=== PATIENT | female | born 1975 | race Caucasian/White ===

== ENCOUNTER 2017-06-13 05:20 | Emergency (ER) | payer MEDICAID, OTHER ==
[~2017-06-13] VITALS: Ht 142.2 cm; Wt 87.5 kg
[~2017-06-13 05:20] MED LIST: Amoxicillin PO; CARI350T PO; CEFD300C37 PO; HYDR-3240 PO; OXYC-302 PO; POTA20TA89 PO; Potassium PO; TRAZ50TA18 PO
[2017-06-13 05:49] LABS: HEMATOCRIT 37.1 % (34.6-47.8); WHITE BLOOD COUNT 15.8 x10^3/uL (3.4-10)
[2017-06-13 06:03] LABS: BLOOD UREA NITROGEN 8 mg/dL (7-18)
[2017-06-13 06:06] LABS: IS PT STATUS REG ER OR PRE ER? YES
[2017-06-13] MEDS ORDERED: KETOROLAC 30 MG/1 ML IM ONE (07:00)
[2017-06-13] MEDS ORDERED: KETOROLAC 30 MG/1 ML ONE (07:21)
[2017-06-13 07:29] VITALS: BP 159/71
[2017-06-13 07:50] LABS: IS PT STATUS REG ER OR PRE ER? YES
== END 2017-06-13 12:27 | disposition home or self-care (01) ==
LOC: ED 05:26
DX: R07.89 Other chest pain (principal)
CPT/HCPCS: 36415; 80048; 82040; 84484; 85025; 93005; 96372; 99285; J1885

== ENCOUNTER 2017-06-14 07:28 | Emergency (ER) | payer MEDICAID ==
[~2017-06-14] VITALS: Ht 144.8 cm; Wt 82.0 kg
[2017-06-14 08:29] LABS: HEMATOCRIT 36.7 % (34.6-47.8); WHITE BLOOD COUNT 13.5 x10^3/uL (3.4-10)
[2017-06-14 08:42] LABS: ASPARTATE AMINO TRANSFERASE 60 U/L (15-37); BLOOD UREA NITROGEN 9 mg/dL (7-18)
[2017-06-14 09:18] LABS: PATH.CAST-FLAG NOT PRESENT; SPERM-FLAG NOT PRESENT; SRC-FLAG NOT PRESENT; XTAL-FLAG NOT PRESENT; YLC-FLAG NOT PRESENT
[2017-06-14 13:17] VITALS: BP 124/92
== END 2017-06-14 15:17 | disposition home or self-care (01) ==
LOC: ED 07:40
DX: R10.30 Lower abdominal pain, unspecified (principal); F17.210 Nicotine dependence, cigarettes, uncomplicated
CPT/HCPCS: 36415; 80053; 81001; 85025; 99284

== ENCOUNTER 2017-07-05 18:22 | Inpatient (IN) | payer MEDICAID ==
[~2017-07-05] VITALS: Ht 144.8 cm; Wt 79.6 kg
[2017-07-05] MEDS ORDERED: ONDANSETRON 2MG/ML, 2ML IVPush ONE (19:00)
[2017-07-05] MEDS ORDERED: SODIUM CHLORIDE 0.9% 1,000ML IVBOLUS ONE (19:00)
[2017-07-05] MEDS ORDERED: SODIUM CHLORIDE FLUSH 10ML SYR IVF ONE (19:00)
[2017-07-05 19:26] LABS: HEMATOCRIT 42.5 % (34.6-47.8); HEMOGLOBIN 13.5 g/dL (11.7-16.4); WHITE BLOOD COUNT 15.4 x10^3/uL (3.4-10)
[2017-07-05 19:29] LABS: ASPARTATE AMINO TRANSFERASE 59 U/L (15-37); BLOOD UREA NITROGEN 9 mg/dL (7-18)
[2017-07-05 19:35] LABS: IS PT STATUS REG ER OR PRE ER? YES
[2017-07-05] MEDS ORDERED: KETOROLAC 30 MG/1 ML IM ONE (20:00)
[2017-07-05] MEDS ORDERED: KETOROLAC 30 MG/1 ML ONE (20:02)
[2017-07-05] MEDS ORDERED: OMNIPAQUE 350 MG/ML, 100ML BOTTLE ONE (21:18)
[2017-07-05 22:32] LABS: IS PT STATUS REG ER OR PRE ER? YES
[2017-07-06] MEDS ORDERED: NITROGLYCERIN 0.4 MG BOTTLE (25 TABS) SL PRN
[2017-07-06] MEDS ORDERED: ONDANSETRON 2MG/ML, 2ML IVPush PRN
[2017-07-06] MEDS ORDERED: POLYETHYLENE GLYCOL 17 GM PACKET PO PRN
[2017-07-06] MEDS ORDERED: BISACODYL 10 MG SUPP PR PRN
[2017-07-06 01:25] LABS: FERRITIN 18.7 ng/mL (8-252)
[2017-07-06 02:20] VITALS: BP 110/70
[2017-07-06] MEDS: HEPARIN 5,000 UNITS/ML, 1ML SQ SCH ×3 (04:44→22:21)
[2017-07-06] MEDS: ASPIRIN 81 MG TABLET EC PO SCH (04:44)
[2017-07-06] MEDS: LEVOFLOXACIN/PMX 500MG/100ML 100 ML IV SCH (04:45)
[2017-07-06] MEDS: SODIUM CHLORIDE 0.9% 1,000 ML IV SCH ×2 (04:45→22:21)
[2017-07-06 06:29] LABS: BLOOD UREA NITROGEN 9 mg/dL (7-18)
[2017-07-06 06:34] LABS: ASPARTATE AMINO TRANSFERASE 53 U/L (15-37)
[2017-07-06 06:36] LABS: IS PT STATUS REG ER OR PRE ER? NO
[2017-07-06 06:48] LABS: HEMATOCRIT 35.3 % (34.6-47.8); HEMOGLOBIN 11.3 g/dL (11.7-16.4); WHITE BLOOD COUNT 15.3 x10^3/uL (3.4-10)
[2017-07-06 08:30] VITALS: BP 124/75
[2017-07-06] MEDS: SENNA/DOCUSATE TABLET PO SCH (09:00)
[2017-07-06] MEDS: KETOROLAC 30 MG/1 ML IVPush PRN ×2 (09:30→22:21)
[2017-07-06] MEDS: CARISOPRODOL 350 MG TABLET PO SCH (12:17)
[2017-07-06] MEDS: POTASSIUM CHLORIDE 20 MEQ TAB.ER.PRT PO SCH ×3 (12:18→22:22)
[2017-07-06] MEDS: OXYcodone/APAP 5/325MG TABLET PO PRN ×2 (12:18→17:51)
[2017-07-06 14:30] VITALS: BP 118/68
[2017-07-06] MEDS: ACETAMINOPHEN 325 MG TABLET PO PRN (15:08)
[2017-07-06] MEDS: IRON SUCROSE COMPLEX 100MG/5ML IV SCH (15:18)
[2017-07-06 20:00] VITALS: BP 128/70
[2017-07-06] MEDS: TRAZODONE 50MG TABLET PO SCH ×2 (22:22)
[2017-07-07 00:50] VITALS: BP 127/87
[2017-07-07] MEDS: OXYcodone/APAP 5/325MG TABLET PO PRN ×2 (03:26→13:07)
[2017-07-07] MEDS: LEVOFLOXACIN/PMX 500MG/100ML 100 ML IV SCH (05:33)
[2017-07-07] MEDS: HEPARIN 5,000 UNITS/ML, 1ML SQ SCH ×3 (05:33→20:40)
[2017-07-07] MEDS: ASPIRIN 81 MG TABLET EC PO SCH (05:33)
[2017-07-07 06:09] LABS: HEMATOCRIT 31.3 % (34.6-47.8); HEMOGLOBIN 10.2 g/dL (11.7-16.4); WHITE BLOOD COUNT 9.7 x10^3/uL (3.4-10)
[2017-07-07 06:26] LABS: BLOOD UREA NITROGEN 8 mg/dL (7-18)
[2017-07-07 09:23] VITALS: BP 132/71
[2017-07-07] MEDS: POTASSIUM CHLORIDE 20 MEQ TAB.ER.PRT PO SCH ×2 (10:40→20:33)
[2017-07-07] MEDS: CARISOPRODOL 350 MG TABLET PO SCH (10:40)
[2017-07-07] MEDS: IRON SUCROSE COMPLEX 100MG/5ML IV SCH (10:40)
[2017-07-07] MEDS: SENNA/DOCUSATE TABLET PO SCH (10:40)
[2017-07-07] MEDS: KETOROLAC 30 MG/1 ML IVPush PRN ×2 (10:54→20:34)
[2017-07-07] MEDS: SODIUM CHLORIDE 0.9% 1,000 ML IV SCH (13:07)
[2017-07-07 15:58] VITALS: BP 136/76
[2017-07-07 19:18] VITALS: BP 125/66
[2017-07-07] MEDS: TRAZODONE 50MG TABLET PO SCH (20:33)
[2017-07-08] MEDS: SODIUM CHLORIDE 0.9% 1,000 ML IV SCH (02:34)
[2017-07-08 03:15] VITALS: BP 130/73
[2017-07-08] MEDS: KETOROLAC 30 MG/1 ML IVPush PRN ×3 (03:45→18:34)
[2017-07-08] MEDS: HEPARIN 5,000 UNITS/ML, 1ML SQ SCH ×3 (05:16→20:55)
[2017-07-08] MEDS: ASPIRIN 81 MG TABLET EC PO SCH (05:16)
[2017-07-08] MEDS: LEVOFLOXACIN/PMX 500MG/100ML 100 ML IV SCH (05:16)
[2017-07-08 06:40] VITALS: BP 144/80
[2017-07-08] MEDS: POTASSIUM CHLORIDE 20 MEQ TAB.ER.PRT PO SCH ×2 (10:22→20:55)
[2017-07-08] MEDS: SENNA/DOCUSATE TABLET PO SCH (10:22)
[2017-07-08] MEDS: CARISOPRODOL 350 MG TABLET PO SCH (10:22)
[2017-07-08] MEDS: OXYcodone/APAP 5/325MG TABLET PO PRN ×2 (10:22→16:41)
[2017-07-08] MEDS: IRON SUCROSE COMPLEX 100MG/5ML IV SCH (10:22)
[2017-07-08 12:50] VITALS: BP 128/87
[2017-07-08 19:50] VITALS: BP 135/88
[2017-07-08] MEDS: TRAZODONE 50MG TABLET PO SCH (20:56)
[2017-07-09 03:30] VITALS: BP 133/78
[2017-07-09] MEDS: ASPIRIN 81 MG TABLET EC PO SCH (05:15)
[2017-07-09] MEDS: HEPARIN 5,000 UNITS/ML, 1ML SQ SCH ×3 (05:15→20:32)
[2017-07-09] MEDS: LEVOFLOXACIN 500 MG TABLET PO SCH (05:16)
[2017-07-09] MEDS: OXYcodone/APAP 5/325MG TABLET PO PRN ×3 (05:23→20:32)
[2017-07-09 06:45] VITALS: BP 139/76
[2017-07-09] MEDS: CARISOPRODOL 350 MG TABLET PO SCH (10:26)
[2017-07-09] MEDS: IRON SUCROSE COMPLEX 100MG/5ML IV SCH (10:26)
[2017-07-09] MEDS: SENNA/DOCUSATE TABLET PO SCH (10:26)
[2017-07-09] MEDS: POTASSIUM CHLORIDE 20 MEQ TAB.ER.PRT PO SCH ×2 (10:26→20:32)
[2017-07-09] MEDS: KETOROLAC 30 MG/1 ML IVPush PRN (10:27)
[2017-07-09 14:52] VITALS: BP 127/82
[2017-07-09 19:53] VITALS: BP 107/74
[2017-07-09] MEDS: TRAZODONE 50MG TABLET PO SCH (20:32)
[2017-07-10 01:54] VITALS: BP 115/78
[2017-07-10] MEDS: ASPIRIN 81 MG TABLET EC PO SCH (05:26)
[2017-07-10] MEDS: LEVOFLOXACIN 500 MG TABLET PO SCH (05:26)
[2017-07-10] MEDS: HEPARIN 5,000 UNITS/ML, 1ML SQ SCH ×3 (05:26→22:08)
[2017-07-10 08:06] VITALS: BP 109/71
[2017-07-10] MEDS: SENNA/DOCUSATE TABLET PO SCH ×2 (09:00→09:50)
[2017-07-10] MEDS: POTASSIUM CHLORIDE 20 MEQ TAB.ER.PRT PO SCH ×2 (09:49→22:08)
[2017-07-10] MEDS: FERROUS SULFATE 325 MG TABLET PO SCH ×2 (09:49→15:48)
[2017-07-10] MEDS: CARISOPRODOL 350 MG TABLET PO SCH (09:49)
[2017-07-10] MEDS: OXYcodone/APAP 5/325MG TABLET PO PRN ×3 (09:49→22:08)
[2017-07-10 14:30] VITALS: BP 145/88
[2017-07-10 19:33] VITALS: BP 115/80
[2017-07-10] MEDS: TRAZODONE 50MG TABLET PO SCH (22:08)
[2017-07-11 02:00] VITALS: BP 112/81
[2017-07-11] MEDS: OXYcodone/APAP 5/325MG TABLET PO PRN ×3 (04:27→20:01)
[2017-07-11] MEDS: ASPIRIN 81 MG TABLET EC PO SCH (06:01)
[2017-07-11] MEDS: LEVOFLOXACIN 500 MG TABLET PO SCH (06:01)
[2017-07-11] MEDS: HEPARIN 5,000 UNITS/ML, 1ML SQ SCH ×3 (06:05→20:02)
[2017-07-11 08:00] VITALS: BP 107/70
[2017-07-11] MEDS: CARISOPRODOL 350 MG TABLET PO SCH (08:54)
[2017-07-11] MEDS: SENNA/DOCUSATE TABLET PO SCH (08:54)
[2017-07-11] MEDS: POTASSIUM CHLORIDE 20 MEQ TAB.ER.PRT PO SCH ×2 (08:55→20:01)
[2017-07-11] MEDS: FERROUS SULFATE 325 MG TABLET PO SCH ×2 (08:55→17:27)
[2017-07-11 14:00] VITALS: BP 100/70
[2017-07-11] MEDS: ACETAMINOPHEN 325 MG TABLET PO PRN (15:34)
[2017-07-11 19:32] VITALS: BP 125/97
[2017-07-11] MEDS: TRAZODONE 50MG TABLET PO SCH (20:01)
[2017-07-12 01:16] VITALS: BP 104/73
[2017-07-12] MEDS: ACETAMINOPHEN 325 MG TABLET PO PRN (01:17)
[2017-07-12] MEDS: ASPIRIN 81 MG TABLET EC PO SCH (05:36)
[2017-07-12] MEDS: LEVOFLOXACIN 500 MG TABLET PO SCH (05:36)
[2017-07-12] MEDS: OXYcodone/APAP 5/325MG TABLET PO PRN ×2 (05:36→15:32)
[2017-07-12] MEDS: HEPARIN 5,000 UNITS/ML, 1ML SQ SCH ×2 (05:37→12:58)
[2017-07-12 07:59] VITALS: BP 150/85
[2017-07-12] MEDS: POTASSIUM CHLORIDE 20 MEQ TAB.ER.PRT PO SCH (09:02)
[2017-07-12] MEDS: SENNA/DOCUSATE TABLET PO SCH (09:02)
[2017-07-12] MEDS: FERROUS SULFATE 325 MG TABLET PO SCH (09:02)
[2017-07-12] MEDS: CARISOPRODOL 350 MG TABLET PO SCH (09:02)
[2017-07-12] MEDS ORDERED: SUMATRIPTAN 6MG/0.5ML SQ PRN (10:00)
[2017-07-12 12:00] VITALS: BP 148/89
[2017-07-12] MEDS ORDERED: FERR-36 PO (15:44)
== END 2017-07-12 16:50 | disposition home or self-care (01) | DRG 313 ==
LOC: ED 19:39 → EDIP 23:55 → 4EST 07-06 02:44 → 4WST 07-10 20:08 → DCLOUNGE 07-12 16:43
PROVIDERS: ADMIT Hospitalist; ATTEND Family Medicine
PROC: 0T9B70Z Drainage of Bladder with Drainage Device, Via Natural or Artificial Opening (ICD-10-PCS; principal; 2017-07-05)
DX: R07.89 Other chest pain (principal); G82.50 Quadriplegia, unspecified; N39.0 Urinary tract infection, site not specified; E11.9 Type 2 diabetes mellitus without complications; E78.1 Pure hyperglyceridemia; B96.20 Unspecified Escherichia coli [E. coli] as the cause of diseases classified elsewhere; B95.2 Enterococcus as the cause of diseases classified elsewhere; F12.90 Cannabis use, unspecified, uncomplicated; R00.0 Tachycardia, unspecified; Z16.11 Resistance to penicillins; F17.210 Nicotine dependence, cigarettes, uncomplicated; Z99.3 Dependence on wheelchair; Q05.9 Spina bifida, unspecified; Z59.0 Homelessness; Z79.84 Long term (current) use of oral hypoglycemic drugs; Z88.2 Allergy status to sulfonamides
CPT/HCPCS: 36415; 71010; 71275; 80048; 80053; 81003; 82728; 82962; 83540; 83550; 83880; 84484; 85025; 87040; 93005; 96372; J1644; J1756; J1885; J1956; Q9967; J3030; J7030

== ENCOUNTER 2017-07-23 18:42 | Emergency (ER) | payer MEDICAID ==
[~2017-07-23] VITALS: Ht 144.8 cm; Wt 79.5 kg
[~2017-07-23 18:42] MED LIST changes: +FERR-36 PO
[2017-07-23 20:31] LABS: MEAN CORPUSCULAR HEMOGLOBIN 25.1 pg (27.0-34.8); MEAN CORPUSCULAR HGB CONC 32.5 g/dL (32.4-35.8); MEAN CORPUSCULAR VOLUME 77.3 fL (80-100); MEAN PLATELET VOLUME 8.3 fL (7.4-10.4); PLATELET COUNT 567 x10^3/uL (130-400); RED BLOOD COUNT 5.38 x10^6/uL (3.82-5.3); RED CELL DISTRIBUTION WIDTH 23.4 % (9.6-15.2)
[2017-07-23 20:36] LABS: ANION GAP 8 mmol/L (5-15); CALCIUM 9.5 mg/dL (8.5-10.1); CHLORIDE 105 mmol/L (98-107); CREATININE 0.49 mg/dL (0.55-1.02)
[2017-07-23 20:46] LABS: BASOPHILS # (AUTO) 0.04 x10^3/uL (0-0.1); BASOPHILS % (AUTO) 0 % (0-1); EOSINOPHILS # (AUTO) 0.62 x10^3/uL (0-0.4); EOSINOPHILS % (AUTO) 4 % (1-7); LYMPHOCYTES # (AUTO) 3.11 x10^3/uL (1-3.4); LYMPHOCYTES % (AUTO) 22 % (22-44); MD MORPH REVIEW ONLY; MONOCYTES # (AUTO) 0.74 x10^3/uL (0.2-0.8); MONOCYTES % (AUTO) 5 % (2-9); NEUTROPHILS # (AUTO) 9.87 x10^3/uL (1.8-6.8); NEUTROPHILS % (AUTO) 69 % (42-75)
[2017-07-23 20:47] LABS: ANISOCYTOSIS 3+; MICROCYTOSIS 1+
[2017-07-23 20:48] LABS: <PLATELET ESTIMATE> INCREASED; <PLT MORPHOLOGY> NORMAL PLT MORPH; POLYCHROMASIA 1+; SPHEROCYTES 1+
[2017-07-23 21:02] LABS: MICROSCOPIC INDICATED
[2017-07-23 21:10] LABS: CULTURE INDICATED? NO
[2017-07-23 21:34] LABS: RAPID INFLUENZA A Negative (Negative); RAPID INFLUENZA B Negative (Negative)
[2017-07-23] MEDS ORDERED: ONDANSETRON ODT 4 MG PO ONE (22:00)
[2017-07-23] MEDS ORDERED: ONDANSETRON ODT 4 MG ONE (22:02)
[2017-07-23 22:23] VITALS: BP 142/88
== END 2017-07-23 23:02 | disposition home or self-care (01) ==
LOC: ED 22:16
DX: B34.9 Viral infection, unspecified (principal); R11.2 Nausea with vomiting, unspecified; E86.0 Dehydration; Z90.49 Acquired absence of other specified parts of digestive tract; G82.50 Quadriplegia, unspecified; Q05.9 Spina bifida, unspecified
CPT/HCPCS: 36415; 71010; 80048; 81001; 85025; 87400; 99285; Q0162; 96374; 96375

== ENCOUNTER 2017-07-24 09:04 | Emergency (ER) | payer MEDICAID ==
[~2017-07-24] VITALS: Ht 144.8 cm; Wt 79.5 kg
[2017-07-24 09:07] VITALS: BP 129/88
[2017-07-24] MEDS ORDERED: METOCLOPRAMIDE 5 MG/ML, 2ML IVPush ONE (10:00)
[2017-07-24] MEDS ORDERED: DIPHENHYDRAMINE 50 MG/ML, 1ML IVPush ONE (10:00)
[2017-07-24] MEDS ORDERED: SODIUM CHLORIDE 0.9% 1,000ML IVBOLUS ONE (10:00)
[2017-07-24] MEDS ORDERED: SODIUM CHLORIDE FLUSH 10ML SYR IVF ONE (10:00)
[2017-07-24] MEDS ORDERED: KETOROLAC 30 MG/1 ML IVPush ONE (10:00)
[2017-07-24] MEDS ORDERED: METOCLOPRAMIDE 5 MG/ML, 2ML ONE (10:03)
[2017-07-24] MEDS ORDERED: KETOROLAC 30 MG/1 ML ONE (10:03)
[2017-07-24] MEDS ORDERED: DIPHENHYDRAMINE 50 MG/ML, 1ML ONE (10:03)
[2017-07-24 10:06] LABS: ALANINE AMINOTRANSFERASE 73 U/L (12-78); ALBUMIN 3.6 g/dL (3.4-5.0); ANION GAP 10 mmol/L (5-15); BASOPHILS # (AUTO) 0.02 x10^3/uL (0-0.1); BASOPHILS % (AUTO) 0 % (0-1); CALCIUM 9.2 mg/dL (8.5-10.1); CHLORIDE 104 mmol/L (98-107); EOSINOPHILS # (AUTO) 0.61 x10^3/uL (0-0.4); EOSINOPHILS % (AUTO) 4 % (1-7); LYMPHOCYTES # (AUTO) 2.59 x10^3/uL (1-3.4); LYMPHOCYTES % (AUTO) 16 % (22-44); MD NO; MEAN CORPUSCULAR HEMOGLOBIN 25.2 pg (27.0-34.8); MEAN CORPUSCULAR HGB CONC 32.9 g/dL (32.4-35.8); MEAN CORPUSCULAR VOLUME 76.6 fL (80-100); MEAN PLATELET VOLUME 8.1 fL (7.4-10.4); MONOCYTES # (AUTO) 0.81 x10^3/uL (0.2-0.8); MONOCYTES % (AUTO) 5 % (2-9); NEUTROPHILS # (AUTO) 11.92 x10^3/uL (1.8-6.8); NEUTROPHILS % (AUTO) 75 % (42-75); PLATELET COUNT 530 x10^3/uL (130-400); RED BLOOD COUNT 5.28 x10^6/uL (3.82-5.3); RED CELL DISTRIBUTION WIDTH 23.6 % (9.6-15.2)
[2017-07-24 10:09] LABS: ALKALINE PHOSPHATASE 98 U/L (45-117); BILIRUBIN,TOTAL 0.4 mg/dL (0.2-1.0); TOTAL PROTEIN 8.5 g/dL (6.4-8.2)
== END 2017-07-24 13:48 | disposition home or self-care (01) ==
LOC: ED 11:24
DX: J20.9 Acute bronchitis, unspecified (principal); R11.2 Nausea with vomiting, unspecified; E11.9 Type 2 diabetes mellitus without complications; Z90.49 Acquired absence of other specified parts of digestive tract
CPT/HCPCS: 36415; 80053; 85025; 87081; 87880; 96361; 96374; 96375; 99284; J1200; J1885; J2765; J7030

== ENCOUNTER 2017-08-10 02:29 | Emergency (ER) | payer MEDICAID ==
[~2017-08-10] VITALS: Ht 147.3 cm; Wt 83.5 kg
[2017-08-10] MEDS ORDERED: MORPHINE SULFATE 4 MG/ML, 1ML ONE (03:05)
[2017-08-10] MEDS ORDERED: SODIUM CHLORIDE FLUSH 10ML SYR IVF ONE (03:30)
[2017-08-10] MEDS ORDERED: MORPHINE SULFATE 4 MG/ML, 1ML IVPush ONE (03:30)
[2017-08-10 03:55] LABS: MEAN CORPUSCULAR VOLUME 78.2 fL (80-100); MEAN PLATELET VOLUME 8.4 fL (7.4-10.4); PLATELET COUNT 387 x10^3/uL (130-400); RED BLOOD COUNT 4.96 x10^6/uL (3.82-5.3); RED CELL DISTRIBUTION WIDTH 22.5 % (9.6-15.2)
[2017-08-10 03:58] LABS: ALANINE AMINOTRANSFERASE 49 U/L (12-78); ANION GAP 10 mmol/L (5-15); CALCIUM 8.7 mg/dL (8.5-10.1); CHLORIDE 104 mmol/L (98-107); CREATININE 0.56 mg/dL (0.55-1.02); D-DIMER 0.72 ug/mlFEU (0.00-0.52); INTERNATIONAL NORMALIZED RATIO 0.96 (0.93-1.1)
[2017-08-10 04:02] LABS: ALKALINE PHOSPHATASE 96 U/L (45-117); BILIRUBIN,TOTAL 0.2 mg/dL (0.2-1.0); TOTAL PROTEIN 7.5 g/dL (6.4-8.2); TROPONIN I < 0.015 ng/mL (0.000-0.045)
[2017-08-10 04:25] LABS: BASOPHILS # (AUTO) 0.05 x10^3/uL (0-0.1); BASOPHILS % (AUTO) 1 % (0-1); EOSINOPHILS # (AUTO) 0.47 x10^3/uL (0-0.4); EOSINOPHILS % (AUTO) 5 % (1-7); LYMPHOCYTES # (AUTO) 2.14 x10^3/uL (1-3.4); LYMPHOCYTES % (AUTO) 24 % (22-44); MD SCAN; MONOCYTES # (AUTO) 0.74 x10^3/uL (0.2-0.8); MONOCYTES % (AUTO) 8 % (2-9); NEUTROPHILS # (AUTO) 5.53 x10^3/uL (1.8-6.8); NEUTROPHILS % (AUTO) 62 % (42-75)
[2017-08-10] MEDS ORDERED: SODIUM CHLORIDE 0.9% 500 ML IV SCH (05:30)
[2017-08-10] MEDS ORDERED: OMNIPAQUE 350 MG/ML, 100ML BOTTLE ONE (05:30)
[2017-08-10] MEDS ORDERED: POTASSIUM CHLORIDE 20 MEQ TAB.ER.PRT PO ONE (06:30)
[2017-08-10] MEDS ORDERED: KETOROLAC 30 MG/1 ML IVPush ONE (06:30)
[2017-08-10] MEDS ORDERED: KETOROLAC 30 MG/1 ML ONE (06:51)
[2017-08-10] MEDS ORDERED: POTASSIUM CHLORIDE 20 MEQ TAB.ER.PRT ONE (06:51)
[2017-08-10 06:57] VITALS: BP 104/36
== END 2017-08-10 07:55 | disposition home or self-care (01) ==
LOC: ED 03:59
DX: R07.89 Other chest pain (principal); R60.0 Localized edema; M79.672 Pain in left foot; M79.671 Pain in right foot; I10 Essential (primary) hypertension; E11.9 Type 2 diabetes mellitus without complications; Z90.49 Acquired absence of other specified parts of digestive tract; F17.210 Nicotine dependence, cigarettes, uncomplicated; Z59.0 Homelessness
CPT/HCPCS: 36415; 71045; 71275; 80053; 84484; 85025; 85379; 85610; 85730; 93005; 96361; 96374; 96375; 99285; J1885; J7040; Q9967

== ENCOUNTER 2017-11-18 22:46 | Emergency (ER) | payer MEDICAID ==
[~2017-11-18] VITALS: Ht 144.8 cm; Wt 78.0 kg
[~2017-11-18 22:46] MED LIST changes: -FERR-36 PO; +FERR-51 PO
[2017-11-18] MEDS ORDERED: KETOROLAC 30 MG/1 ML ONE (23:23)
[2017-11-18] MEDS ORDERED: ALBUTEROL SULFATE 2.5 MG/3 ML NPPB ONE (23:30)
[2017-11-18] MEDS ORDERED: KETOROLAC 30 MG/1 ML IM ONE (23:30)
[2017-11-18] MEDS ORDERED: ALBUTEROL SULFATE 2.5 MG/3 ML ONE (23:33)
[2017-11-18 23:41] LABS: ANION GAP 6 mmol/L (5-15); CALCIUM 8.3 mg/dL (8.5-10.1); CHLORIDE 110 mmol/L (98-107)
[2017-11-18 23:44] LABS: CREATINE KINASE, TOTAL 46 U/L (26-192)
[2017-11-19] MEDS ORDERED: ACETAMINOPHEN 500 MG TABLET PO ONE
[2017-11-19] MEDS ORDERED: ACETAMINOPHEN 500 MG TABLET ONE (00:01)
[2017-11-19 02:16] VITALS: BP 120/88
== END 2017-11-19 02:51 | disposition home or self-care (01) ==
LOC: ED 23:20
DX: M79.1 Myalgia (principal); I10 Essential (primary) hypertension; E11.9 Type 2 diabetes mellitus without complications; Q05.9 Spina bifida, unspecified; Z90.49 Acquired absence of other specified parts of digestive tract
CPT/HCPCS: 36415; 80048; 82550; 94640; 96372; 99284; J1885; J7613

== ENCOUNTER 2018-08-11 10:44 | Emergency (ER) | payer MEDICAID ==
[~2018-08-11] VITALS: Ht 144.8 cm; Wt 81.0 kg
[~2018-08-11 10:44] MED LIST changes: -TRAZ50TA18 PO; +TRAZ50TA66 PO
--- NOTE | 2018-08-11 10:59 | NUR ---
pt bib [facility]sa after unable to get bed at [facility] last night. pt is quad and had to sleep outside in her wheel chair, causing generalized pain. pt stated taht she was recently released from a snf due to insurance issues and has an different snf lined up. pt states that per new snf, she must be admitted to a hospital before she can be accepted to new snf. md at bedside for assessment. md to call social media campaign manager. connected to monitors. vss. pt unable to press call light button. this rn will check on pt at least every half hour. pt agrees to plan. pt requesting to rest. lights dimmed.
[2018-08-11 11:53] VITALS: BP 138/80
--- NOTE | 2018-08-11 11:53 | NUR ---
PT RESTING IN BED WTIH AT BEDSIDE. VSS. NO NEEDS AT THIS TIME. PAINTER ORDNANCE AWARE OF NEEDS. AWAITING SW ASSESSMENT.
--- NOTE | 2018-08-11 12:40 | NUR ---
PT RESTING WITH AT BEDSIDE. PT'S DOG PLACED IN ED KENNEL. VSS. NO NEEDS AT THIS TIME.
--- NOTE | 2018-08-11 13:10 | NUR ---
KASI MARTIN TO BEDSIDE TO DISCUSS POC WITH PT AND FAMILY. PT TO BE DCd HOME, TRANSPORT CURRENTLY BEING ORGANIZED. WILL CONTINUE TO MONITOR
== END 2018-08-11 13:34 | disposition home or self-care (01) ==
LOC: ED 11:00
DX: G82.50 Quadriplegia, unspecified (principal); I10 Essential (primary) hypertension; E11.9 Type 2 diabetes mellitus without complications
CPT/HCPCS: 99283